=== PATIENT | female | born 1960 | race Hispanic/Latino ===

== ENCOUNTER 2017-08-22 22:55 | Emergency (ER) | payer OTHER ==
[~2017-08-22] VITALS: Ht 154.9 cm; Wt 74.8 kg
[2017-08-22 23:38] LABS: BILIRUBIN,URINE 1+ (NEGATIVE); COLOR,URINE YELLOW (YELLOW); KETONES,URINE NEGATIVE (NEGATIVE); LEUKOCYTE ESTERASE ,URINE 2+ (NEGATIVE); PROTEIN,URINE DIPSTICK NEGATIVE (NEGATIVE); URINE UROBILINOGEN 0.2 mg/dL (0.2 - 1)
[2017-08-22 23:43] LABS: CLARITY,URINE SL CLOUDY (CLEAR); NITRITE,URINE POSITIVE (NEGATIVE)
[2017-08-22 23:46] LABS: BACTERIA,URINE FEW /HPF; EPITHELIAL CELLS,URINE MODERATE /LPF; WBC,URINE (MAN) >50 /HPF (0-5)
[2017-08-23] MEDS ORDERED: CEFTRIAXONE SOD 1 GM VIAL IM ONE (00:15)
[2017-08-23] MEDS ORDERED: LIDOCAINE HCL 1% LOCAL INJ 20 ML VIAL ONE (00:22)
[2017-08-23] MEDS ORDERED: LIDOCAINE HCL 1% LOCAL INJ 20 ML VIAL INJ ONE (00:30)
== END 2017-08-23 00:45 | disposition home or self-care (01) ==
LOC: ER 22:55
DX: R30.0 Dysuria (principal); N30.01 Acute cystitis with hematuria
CPT/HCPCS: 81001; 87086; 99282; J0696; J2001